=== PATIENT | female | born 1995 | race Caucasian/White ===

== ENCOUNTER 2016-12-10 13:31 | Emergency (ER) | payer SELFPAY ==
[~2016-12-10] VITALS: Ht 170.2 cm; Wt 59.0 kg
[2016-12-10 13:35] VITALS: BP 128/75
== END 2016-12-10 15:28 | disposition home or self-care (01) ==
LOC: ED 14:40
DX: S50.851A Superficial foreign body of right forearm, initial encounter (principal); W46.0XXA Contact with hypodermic needle, initial encounter; Y93.89 Activity, other specified; Y92.89 Other specified places as the place of occurrence of the external cause; Y99.8 Other external cause status
CPT/HCPCS: 99284

== ENCOUNTER 2017-03-02 19:04 | Emergency (ER) | payer SELFPAY ==
[~2017-03-02] VITALS: Ht 170.2 cm; Wt 62.3 kg
[2017-03-02 19:09] VITALS: BP 125/87
== END 2017-03-02 20:41 | disposition home or self-care (01) ==
LOC: ED 20:00
DX: S90.32XA Contusion of left foot, initial encounter (principal); W20.8XXA Other cause of strike by thrown, projected or falling object, initial encounter; Y93.89 Activity, other specified; Y92.89 Other specified places as the place of occurrence of the external cause; Y99.8 Other external cause status
CPT/HCPCS: 99284